=== PATIENT | female | born 1995 | race Caucasian/White ===

== ENCOUNTER → 2020-07-10 | Outpatient (CLI) | payer OTHER | END | disposition home or self-care (01) | LOC: CVU 10:10 | PROVIDERS: ATTEND Internal Medicine Cardiovascular Disease | DX: R06.89 Other abnormalities of breathing (principal); R06.02 Shortness of breath | CPT/HCPCS: 93306; 93356 ==

== ENCOUNTER → 2020-08-18 | Outpatient (CLI) | payer OTHER ==
[~2020-08-18] MED LIST: OMNIPAQUE 350 MG/ML, 100ML BOTTLE ONE
== END | disposition home or self-care (01) ==
LOC: RAD 15:33
PROVIDERS: ATTEND Internal Medicine Cardiovascular Disease
DX: R06.02 Shortness of breath (principal); I26.99 Other pulmonary embolism without acute cor pulmonale
CPT/HCPCS: 71275; Q9967